=== PATIENT | male | born 1930 | race Caucasian/White ===

== ENCOUNTER 2021-02-10 16:13 | Emergency (ER) | payer MEDICARE ==
[2021-02-10 16:56] LABS: HEMOGLOBIN 11.3 gm/dl (14.0-17.5); RED BLOOD COUNT 3.86 M/UL (4.20-5.50); WHITE BLOOD COUNT 4.2 K/UL (4.5-11.0)
[2021-02-10 17:17] LABS: BUN/CREATININE RATIO 26 (0-10)
== END 2021-02-10 18:14 | disposition home or self-care (01) ==
LOC: ER1 16:13
PROVIDERS: Emergency Medicine
DX: U07.1 COVID-19 (principal)
CPT/HCPCS: 80053; 83690; 85025; 99283; Q9967; U0002